=== PATIENT | male | born 1990 | race Caucasian/White ===

== ENCOUNTER 2024-09-07 18:16 | Emergency (ER) | payer OTHER ==
[2024-09-07] MEDS: LORazepam 1 MG Tab PO ONE ×2 (19:14→20:07)
== END 2024-09-07 20:12 ==
LOC: JD.ED 18:16
DX: M47.813 Spondylosis without myelopathy or radiculopathy, cervicothoracic region (principal); F17.200 Nicotine dependence, unspecified, uncomplicated; Z96.698 Presence of other orthopedic joint implants
CPT/HCPCS: 72052; 99284; A9270